=== PATIENT | male | born 1960 | race Caucasian/White ===

== ENCOUNTER → 2020-02-07 15:17 | Outpatient (CLI) | payer OTHER, SELFPAY ==
[2020-02-08 08:28] LABS: COVID19 Sendout Not Detected (Not Detect)
== END ==
PROVIDERS: Visit Provider Physician Assistant
DX: Z11.59 Encounter for screening for other viral diseases (principal)
CPT/HCPCS: 87635

== ENCOUNTER 2020-02-10 11:31 | Day surgery (SDC) | payer OTHER, SELFPAY ==
--- NOTE | 2020-02-10 11:42 | PM.HP.1 ---
History of Present Illness History of Present Illness Date Patient Seen: 02/10/20 [place] [facility] [place] 59 Years Old Male seen today for consideration of a screening colonoscopy. There have been no lower GI symptoms suggesting disease such as change in bowel habits, bleeding, abdominal pain or anemia. There's been no family history of colon cancer or colon polyps. Overall health issues have been stable, including no major cardiac events for at least 6 weeks. Current Medications: None Allergies: No Known Drug Allergies Past Medical History: Arm pain, left Past Surgical History: Appendectomy 1970 Family History: No colon cancer or colon polyps. Social History: Marital Status: Children: none Occupation: [employer] Members: Ciarra Mena Education: 12 Alcohol drinks/day: <1/day >5/day in last 3 mos: no Type of Exercise: walking Exercise Times per Week: daily Guns in home: yes Patient History Medical History (Updated 02/10/20 @ 12:25 by Nazia Hu RN) No active medical problems (Acute) Meds Home Medications and Allergies Home Medications Medication Instructions Recorded Confirmed Type No Known Home Medications 02/10/20 02/10/20 History Allergies Allergy/AdvReac Type Severity Reaction Status Date / Time No Known Drug Allergies Allergy Verified 02/10/20 12:25 Review of Systems Review of Systems ROS: Yes All systems reviewed with the patient and are negative except as otherwise documented Exam Narrative Exam Narrative: GENERAL: Alert and oriented, appearing stated age and in no acute distress. HEENT: Head normocephalic/atraumatic. Pupils equal, round, and reactive to light and accomodation. Extraocular muscles intact. Tympanic membranes clear. Nasal mucosa moist, septum midline. Oral mucosa moist, no lesions. Neck soft and supple, no lymphadenopathy. LUNGS: Clear to ausculation bilaterally, no wheezes, rhonchi or rales. CV: Normal S1 and S2 with regular rate and rhythm, no audible murmurs, rubs or gallops. ABDOMEN: Soft, non-tender, non-distended, no organomegaly. Positive bowel sounds. EXTREMITIES: No clubbing, cyanosis, or edema. NEURO: Cranial nerves II through XII grossly intact, no focal deficits. PSYCH: Alert and oriented x 3. SKIN: No concerning lesions. Assessment & Plan Assessment & Plan narrative: 1. Screening for colon cancer Plan for colonoscopy. The nature and character of the procedure as well as anticipated results were discussed. The possibility of not completing the procedure was also discussed. Possible complications including aspiration pneumonia, bleeding, perforation and reaction to medications either for sedation or preparation and missed lesions were discussed. Questions were answered and proceeding to the colonoscopy was elected. Informed consent signed. I sincerely appreciate the referral allowing me to participate in this patient's care. Please contact me with any questions or concerns.
--- NOTE | 2020-02-10 11:44 | PM.OP.ENDO ---
Operative Date/Time/Diagnoses Date of procedure: 02/10/20 Procedure Notes SCOAP/Timeout: 12:59 pm Procedure in detail: ENDOSCOPIST: Annita Dougherty MD Sedation RN: Leila Mari RN Sedation start time: 1:00 p.m. Sedation end time: 1:19 p.m. PROCEDURE: Colonoscopy INDICATIONS: 1. Screening for colon cancer MEDICATION: Levsin 0.125 mg sublingual, incremental doses of Versed and fentanyl until appropriate level sedation achieved. ASA CLASS: 1 CECAL WITHDRAWAL TIME: 8 minutes COMPLICATIONS: None. EXTENT OF PROCEDURE: Cecum. QUALITY OF PREP: Good with portions of liquid stool. PROCEDURE: Prior to insertion of the colonoscope, a digital rectal examination was accomplished with circumferential palpation of the distal rectal mucosa without significant findings being noted. The high-definition colonoscope was passed into the rectum in the usual fashion and advanced over to the cecum without difficulty. The ileocecal valve, appendiceal stoma, and medial wall all could be inspected and no abnormalities were seen. ASCENDING COLON: As the colonoscope was withdrawn, care was taken to expose and inspect the haustral folds and no abnormalities were seen. HEPATIC FLEXURE: Normal, no polyps, diverticula or other abnormalities. TRANSVERSE COLON: Normal, no polyps, diverticula or other abnormalities. DESCENDING COLON: Normal, no polyps, diverticula or other abnormalities. SIGMOID COLON: Normal, no polyps, diverticula or other abnormalities. RECTUM: Normal. J maneuver was produced. There was no significant perianal disease. The J maneuver was broken. The remainder of the rectum was inspected and there was no external hemorrhoid disease. The scope was withdrawn. IMPRESSION: 1. Normal colonoscopy PLAN: 1. Repeat colonoscopy in 10 years. The possibility of a missed lesion including a malignancy has been discussed with the patient previously. Potential alarm symptoms have been discussed and should be reported immediately.
[2020-02-10] MEDS: HYOSCYAMINE 0.125 MG TABLET PO (12:17)
[2020-02-10] MEDS: LACTATED RINGERS 1,000 ML 200 ML IV (12:17)
[2020-02-10 12:26] VITALS: BP 136/84; PULSE 57; RESP 16; TEMP 36.6; O2SAT 95; BMI 26.6
[2020-02-10] MEDS: fentaNYL 250 MCG/5 ML INJ IV (13:00)
[2020-02-10] MEDS: MIDAZOLAM 5 MG/5 ML VIAL IV (13:00)
[2020-02-10 13:25] VITALS: BP 132/75; PULSE 58; RESP 16; TEMP 36.8; O2SAT 95
[2020-02-10 13:30] VITALS: BP 120/78; PULSE 70; RESP 19; O2SAT 95
[2020-02-10 14:04] VITALS: BP 111/71; PULSE 53; RESP 16; TEMP 36.8; O2SAT 95
--- NOTE | 2020-02-10 14:11 | SUR.PHASEII ---
Discharge reviewed with patient. No follow-up questions. Tolerating po. Denies pain.
[2020-02-10 14:19] VITALS: BP 112/77; PULSE 51; RESP 14; TEMP 36.9; O2SAT 96
== END 2020-02-10 14:26 | disposition home or self-care (01) ==
PROVIDERS: Referring Provider Student in an Organized Health Care Education/Training Program; Visit Provider Student in an Organized Health Care Education/Training Program
PROC: 0DJD8ZZ Inspection of Lower Intestinal Tract, Via Natural or Artificial Opening Endoscopic (ICD-10-PCS; CPT 45378; principal; 2020-02-10 13:00)
DX: Z12.11 Encounter for screening for malignant neoplasm of colon (principal)
CPT/HCPCS: 45378; J2250; J3010

== ENCOUNTER → 2021-04-11 13:32 | Outpatient (CLI) | payer OTHER, SELFPAY ==
--- NOTE | 2021-04-11 13:36 | DI.RAD.S_ITS ---
PROCEDURE: XR SHOULDER LT MIN 2V INDICATIONS: fall TECHNIQUE: 3 views of the shoulder were acquired. COMPARISON: None. FINDINGS: Bones: No fractures or dislocations. No suspicious bony lesions. Visualized ribs appear intact. Age-appropriate bony degenerative changes are seen. Soft tissues: No suspicious soft tissue calcifications. The visualized lung demonstrates an unremarkable appearance. IMPRESSION: Unremarkable study for age, without an acute abnormality seen by plain film. If it would be helpful for clinical management decision making, please consider a dedicated, scheduled shoulder MRI for further evaluation (assuming that there is no contraindication). Dictated by: Wyatt Thacker M.D. on 04/11/2021 at 13:17 Approved by: Wyatt Thacker M.D. on 04/11/2021 at 13:17
== END ==
PROVIDERS: PCP Family Medicine; Referring Provider Nurse Practitioner Family; Visit Provider Nurse Practitioner Family
DX: S49.92XA Unspecified injury of left shoulder and upper arm, initial encounter (principal); W19.XXXA Unspecified fall, initial encounter
CPT/HCPCS: 73030

== ENCOUNTER → 2022-01-16 09:27 | Outpatient (CLI) | payer OTHER, SELFPAY ==
--- NOTE | 2022-01-16 09:28 | DI.MRI.S_ITS ---
PROCEDURE: MR SHOULDER LT WO CON INDICATIONS: Pain in left shoulder TECHNIQUE: Noncontrast oblique coronal T2 fast spin echo with fat saturation, oblique sagittal T1 spin echo and T2 fast spin echo with fat saturation, axial T1 spin echo and T2 fast spin echo with fat saturation through the shoulder. COMPARISON: [facility], CR, XR SHOULDER LT MIN 2V, 04/11/2021, 13:40. FINDINGS: Image quality: Excellent. Rotator cuff: There is near full-thickness tear of the supraspinatus tendon along the articular and bursal surface (series 8, image 13) extending from the musculotendinous junction to the footprint of the humeral attachment. Partial thickness tear is noted in the distal teres minor tendon along the articular surface. There is mild teres minor muscle atrophy. There is moderate infraspinatus and subscapularis tendons tendinosis with possible low-grade tendon tear. Bones and bursae: No bone marrow contusions or fractures. Moderate acromioclavicular and mild glenohumeral joint degeneration. The acromion demonstrates conventional anatomy, without an os acromiale. There is small subcoracoid bursal fluid suggesting mild bursitis. Capsule and soft tissues: There is a small superior labral tear at 11-12 o'clock position. The long head of the biceps tendon demonstrates normal location and morphology. The rotator interval appears irregular with fibrosis. The coracohumeral ligament is normal in thickness. IMPRESSION: 1. [id number] tear of the supraspinatus tendon. 2. Partial thickness tear of the teres minor muscle. There is mild teres minor muscle atrophy. 3. Moderate infraspinatus and subscapularis tendinosis. 4. Small superior labral tear. 5. Mild subcoracoid bursitis. 6. Moderate acromioclavicular and mild glenohumeral joint degeneration. 7. Irregular rotator interval with fibrosis. The finding is associated with adhesive capsulitis. Recommend clinical correlation. Dictated by: Micah Nichols M.D. on 01/17/2022 at 9:16 Approved by: Micah Nichols M.D. on 01/17/2022 at 9:32
== END ==
PROVIDERS: PCP Family Medicine; Referring Provider Family Medicine; Visit Provider Family Medicine
DX: M75.112 Incomplete rotator cuff tear or rupture of left shoulder, not specified as traumatic (principal); S43.492A Other sprain of left shoulder joint, initial encounter; M19.012 Primary osteoarthritis, left shoulder; M25.512 Pain in left shoulder; M75.52 Bursitis of left shoulder
CPT/HCPCS: 73221